=== PATIENT | female | born 1970 | race American Indian/Alaskan Native ===

== ENCOUNTER 2016-06-20 06:56 | Outpatient (CLI) | payer OTHER ==
--- NOTE | 2016-06-20 09:52 | Mammography Report ---
BILATERAL DIGITAL SCREENING MAMMOGRAM WITH CAD: Comparison is made to previous studies in December of 2014 and July of 2013. FINDINGS: The parenchyma is heterogeneously dense. Asymmetric opacities in the left breast have actually decreased in size and thus need no additional evaluation at this time. There is no architectural distortion. Scattered benign calcifications are stable. IMPRESSION: No suspicious findings with decreasing size of benign left asymmetries. BI-RADS CATEGORY: 2 = Benign ACR BI-RADS MAMMOGRAPHIC CODES: 0 = Needs additional imaging evaluation; 1 = Negative; 2 = Benign; 3 = Probably benign; 4 = Suspicious; 5 = Malignant; 6 = Known biopsy-proven malignancy COMMENT: 1. Dense breast tissue, i.e., adenosis, fibrocystic changes, etc., may obscure an underlying neoplasm. 2. Approximately 10% of cancers are not detected with mammography. 3. A negative mammography report should not delay biopsy if a clinically suspicious mass is present. RECOMMENDATION: Annual screening.
== END 2016-06-20 06:57 | disposition home or self-care (01) ==
LOC: MAMMO 06:56
PROVIDERS: ATTEND Obstetrics & Gynecology
DX: Z12.31 Encounter for screening mammogram for malignant neoplasm of breast (principal)
CPT/HCPCS: 77067; G0202